=== PATIENT | female | born 2000 | race Caucasian/White ===

== ENCOUNTER 2024-01-14 18:52 | Outpatient (CLI) | payer BC, SELFPAY ==
[2024-01-15 00:11] LABS: Chlamydia DNA Amplified* NOT DETECTED (No Detected); GC DNA Amplified* NOT DETECTED (No Detected)
== END 2024-01-14 18:53 | disposition home or self-care (01) ==
PROVIDERS: PCP Family Medicine; Visit Provider Family Medicine
DX: Z00.00 Encounter for general adult medical examination without abnormal findings (principal); N97.9 Female infertility, unspecified; Z11.3 Encounter for screening for infections with a predominantly sexual mode of transmission; Z34.91 Encounter for supervision of normal pregnancy, unspecified, first trimester
CPT/HCPCS: 84443; 84702; 86376; 86592; 86703; 86800; 86850; 86900; 86901; 87491; 87591

== ENCOUNTER 2024-03-18 13:45 | Outpatient (CLI) | payer BC, SELFPAY ==
--- NOTE | 2024-03-18 14:00 | CRLHL7_ITS ---
For Patients: As a result of the Century Cures Act, medical imaging exams and procedure reports are released immediately into your electronic medical record. You may view this report before your referring provider. If you have questions, please contact your health care provider. INDICATION: First trimester dating and viability. TECHNIQUE: Ultrasound OB pelvis transabdominal and transvaginal. Real-time hopkins-scale imaging of the pelvis was performed. COMPARISON: None. FINDINGS: Intrauterine gestation: Single. heart activity (bpm): 161. [place]-rump length: 1.6 cm. Estimated ultrasound age: 8 weeks 0 days. RAMILA by ultrasound: 10/28/2024. Yolk sac: Normal, measuring 4.4 millimeters. Perigestational hemorrhage: None. Ovaries and adnexa: Normal with corpus luteum on the right. Suspicious pelvic fluid collections: None. IMPRESSION: Garcia intrauterine . Cardiac activity is present. Estimated gestational age based on crown-rump length is 8 weeks 0 days. Dictated by Molly Marino MD @ 03/19/2024 2:55:30 PM (Electronically Signed)
== END 2024-03-18 13:46 | disposition home or self-care (01) ==
LOC: US 13:46
PROVIDERS: PCP Family Medicine; Visit Provider Physician Assistant
DX: Z34.91 Encounter for supervision of normal pregnancy, unspecified, first trimester (principal); Z3A.08 8 weeks gestation of pregnancy
CPT/HCPCS: 76817; 84443; 86703; 86706; 86803; 86850; 86900; 86901; 87086; 87340; 87491; 87591

== ENCOUNTER 2024-03-18 14:52 | Outpatient (CLI) | payer BC, SELFPAY ==
[2024-03-18 20:55] LABS: Chlamydia DNA Amplified* NOT DETECTED (No Detected); GC DNA Amplified* NOT DETECTED (No Detected)
[2024-03-21 08:24] LABS: HPV Source Cervical; HPV, High Risk by TMA Not Detected
== END 2024-03-18 14:53 | disposition home or self-care (01) ==
PROVIDERS: PCP Family Medicine; Visit Provider Physician Assistant
DX: Z34.01 Encounter for supervision of normal first pregnancy, first trimester (principal)
CPT/HCPCS: 84443; 86592; 86703; 86704; 86706; 86762; 86787; 86803; 86850; 86900; 86901; 87086; 87340; 87491; 87591; 87624; 87625; 88141; 88142

== ENCOUNTER 2024-06-10 14:42 | Outpatient (CLI) | payer BC, SELFPAY ==
--- NOTE | 2024-06-10 15:00 | CRLHL7_ITS ---
For Patients: As a result of the Century Cures Act, medical imaging exams and procedure reports are released immediately into your electronic medical record. You may view this report before your referring provider. If you have questions, please contact your health care provider. INDICATION: Evaluate anatomy. COMPARISON: 03/18/2024 TECHNIQUE: Real time hopkins scale imaging of the fetus was performed as well as color Doppler analysis of the umbilical vessels. FINDINGS: Sonographic imaging demonstrates a single living intrauterine gestation. Fetus demonstrates a regular cardiac rate of 134 beats per minute. Fetus has a variable position. The placenta lies anteriorly without evidence of placenta previa. Edge of the placenta is located 8.8 cm from the internal cervical os. Amniotic fluid volume appears normal. Single deepest vertical pocket: 4.4 cm. The cervix is closed and measures 3.3 cm in length. The composite ultrasound gestational age is calculated at 19 weeks 6 days with an estimated sonographic due date of 10/29/2024. The estimated weight is 324 grams which lies at the 43rd %. The following biometric measurements were obtained: Biparietal diameter: 4.3 cm/19 weeks 1 day 17th% Head circumference: 16.7 cm/19 weeks 3 days 16th% Abdominal circumference: 14.7 cm/20 weeks 0 days 42nd% Femur length: 3.3 cm/20 weeks 1 day 50th% The HC/AC ratio measures: 1.14 range (1.08-1.26) On anatomic survey, there is a normal appearance of the cerebral ventricles, cavum septi pellucidi, cisterna magna and cerebellum. The nose, lips, and facial profile appear normal. The cervical, thoracic and lumbar spine are well visualized and appear normal. There is a normal four-chamber heart view and the left and right ventricular outflow tracts appear normal. The diaphragm and stomach appear normal. The kidneys and bladder also appear normal. There is a normal three-vessel cord and cord insertion site. The four extremities appear normal. IMPRESSION: Normal OB ultrasound exam with concordance of clinical and sonographic dating. No intrinsic abnormalities noted on anatomic survey. Dictated by Phuc Norman MD @ 06/11/2024 12:16:24 PM (Electronically Signed)
== END 2024-06-10 14:43 | disposition home or self-care (01) ==
LOC: US 14:43
PROVIDERS: PCP Family Medicine; Visit Provider Advanced Practice Midwife
DX: Z34.92 Encounter for supervision of normal pregnancy, unspecified, second trimester (principal); Z3A.19 19 weeks gestation of pregnancy
CPT/HCPCS: 76805

== ENCOUNTER 2024-06-30 10:37 | Outpatient (CLI) | payer BC, SELFPAY ==
[2024-06-30 10:56] VITALS: PULSE 100; O2SAT 97
[2024-06-30 10:57] VITALS: BP 115/63; PULSE 80; RESP 16; TEMP 36.6
--- NOTE | 2024-06-30 11:40 | CRLHL7_ITS ---
For Patients: As a result of the Century Cures Act, medical imaging exams and procedure reports are released immediately into your electronic medical record. You may view this report before your referring provider. If you have questions, please contact your health care provider. INDICATION: Bleeding and cramping COMPARISON: 06/10/2024 TECHNIQUE: Campbell-scale and color Doppler of the gravid uterus and fetus from a transabdominal approach. Grayscale transvaginal ultrasound of the maternal cervix. FINDINGS: Established gestational age: 22 weeks 6 days Single intrauterine gestation in a cephalic presentation. heart rate is 133 bpm. The stomach, kidneys, and bladder appear normal. No pleural effusion, pericardial effusion, ascites, or skin edema. Amniotic fluid volume is normal. The placenta is anterior, left, and fundal. No previa. No periplacental hemorrhage. MATERNAL Neither ovary discretely seen. No pelvic free fluid. Cervical length is 4 cm. No funneling at the os. Measured transvaginal IMPRESSION: 1. Single intrauterine gestation without complication seen. 2. Normal maternal cervix. Dictated by Barbi Gaston MD @ 06/30/2024 12:41:20 PM (Electronically Signed)
[2024-06-30] MEDS: lidocaine HCL 2 % JELLY (TOP) STERILE 6 ML TOPICAL (11:52)
[2024-06-30 12:13] LABS: Clue Cells No Clue Cells Seen (None Seen); Trichomonas No Trichomonas Seen (None Seen); Yeast No Yeast Seen (None Seen)
[2024-06-30 13:11] LABS: Appearance Urine Clear (Clear); Bilirubin Urine Negative (Negative); Blood Urine 3+ (Negative); Color Urine Yellow (Yellow); Glucose Urine Negative (Negative); Ketones Urine 2+ (Negative); Leukocyte Esterase Urine Negative (Negative); Nitrite Urine Negative (Negative); Protein Urine Negative (Negative); Specific Gravity Urine 1.015 (1.000-1.030); Urobilinogen Urine 0.2 (0.2-1.0)
[2024-06-30 13:23] LABS: Squamous Epithelial Cell Urine Few (None-Few); WBC Urine 0-2 (0-5)
[2024-06-30 13:37] LABS: Chlamydia DNA Amplified* NOT DETECTED (No Detected); GC DNA Amplified* NOT DETECTED (No Detected)
--- NOTE | 2024-06-30 17:27 | P.OBLDTN_ITS ---
OB - Triage/Final Diagnosis Visit Information Time Seen by Provider: 11:40 Date Seen: 06/30/24 Date of evaluation: 06/30/24 Narrative: The patient is a 24 year old 1 para 0 at 22.6 weeks gestation by first trimester US, who presents with new onset of bleeding this morning when up on the toilet. She reports last evening she had strong cramping but no bleeding until this morning when she got up to the toilet then noticed red blood in the bowl. Denies pain or cramping at this time, does not have vaginal discharge or irritation. She is feeling movement. She was recently seen in another facility's ED and diagnosed with an UTI. Currently on day 7 of antibiotic treatment. All labs are normal except UA shows 2+ Ketones and 3+ blood. US normal appearing placenta and no cervical thinning. Patient discharged home. Evaluation Laboratory results: Laboratory Tests 06/30/24 06/30/24 Range/Units Unknown 12:48 Urine Color Yellow (Yellow) Urine Appearance Clear (Clear) Urine pH 7.0 (5.0-8.5) Ur Specific [place] 1.015 (1.000-1.030) Urine Protein Negative (Negative) Urine Glucose (UA) Negative (Negative) Urine Ketones 2+ A (Negative) Urine Blood 3+ A (Negative) Urine Nitrite Negative (Negative) Urine Bilirubin Negative (Negative) Urine Urobilinogen 0.2 (0.2-1.0) Ur Leukocyte Esterase Negative (Negative) Urine RBC 10-25 A (0-2) Urine WBC 0-2 (0-5) Ur Squamous Epith Cells Few (None-Few) Urine Bacteria None (None) Vaginal Trichomonas No Trichomonas Seen (None Seen) Vaginal Yeast No Yeast Seen (None Seen) Vaginal Clue Cells No Clue Cells Seen (None Seen) C.trachomatis Ampl DNA NOT DETECTED (No Detected) N.gonorrhoeae Ampl DNA NOT DETECTED (No Detected) Vital signs: Vital Signs - 24 hr 06/30/24 10:56 06/30/24 10:57 06/30/24 10:57 Temperature 98 F Pulse Rate 80 Respiratory Rate 16 Blood Pressure 115/63 Pulse Oximetry 97 Comments: Speculum exam done. No vaginal discharge, cervix appears closed. No blood seen in vault. Abdomen is not tender to palpation, soft. Fetus (Single) Heart Rate Baseline: 150 Final Diagnosis (1) Kidney stone complicating : Status: Acute
== END 2024-06-30 13:50 | disposition home or self-care (01) ==
LOC: OB OUT 10:38 → OB 10:39
PROVIDERS: PCP Family Medicine; Visit Provider Advanced Practice Midwife
DX: O46.92 Antepartum hemorrhage, unspecified, second trimester (principal); O47.02 False labor before 37 completed weeks of gestation, second trimester; Z3A.22 22 weeks gestation of pregnancy
CPT/HCPCS: 76815; 76817; 81001; 87210; 87491; 87591; G0463

== ENCOUNTER 2024-08-08 14:32 | Outpatient (CLI) | payer BC, SELFPAY | END 2024-08-08 14:33 | disposition home or self-care (01) | LOC: NFLDREF 14:32 | PROVIDERS: PCP Family Medicine; Visit Provider Advanced Practice Midwife | DX: Z34.93 Encounter for supervision of normal pregnancy, unspecified, third trimester (principal); Z3A.28 28 weeks gestation of pregnancy | CPT/HCPCS: 86592 ==

== ENCOUNTER 2024-08-11 08:29 | Outpatient (CLI) | payer BC, SELFPAY | END 2024-08-11 08:30 | disposition home or self-care (01) | LOC: NFLDREF 08-13 06:47 | PROVIDERS: PCP Family Medicine; Referring Provider Family Medicine; Visit Provider Advanced Practice Midwife | DX: O99.810 Abnormal glucose complicating pregnancy (principal); Z3A.28 28 weeks gestation of pregnancy | CPT/HCPCS: 82951; 82952 ==

== ENCOUNTER 2024-10-03 14:47 | Outpatient (CLI) | payer OTHER, SELFPAY | END 2024-10-03 14:48 | disposition home or self-care (01) | LOC: NFLDREF 10-07 03:03 | PROVIDERS: PCP Family Medicine; Referring Provider Family Medicine; Visit Provider Advanced Practice Midwife | DX: Z34.03 Encounter for supervision of normal first pregnancy, third trimester (principal) | CPT/HCPCS: 87081; 87653 ==

== ENCOUNTER 2024-10-22 19:42 | Outpatient (CLI) | payer OTHER, SELFPAY ==
--- NOTE | 2024-10-22 23:38 | PC.OBNST ---
NST Note NST Note Start: 10/22/24 19:45 Freq: ONCE Status: Active Protocol: Document 10/22/24 19:45 [facility] (Rec: 10/22/24 23:38 [facility] [id number]) NST Note 1 Para (# of births) 0 EDC 10/28/24 Gestational Age In Weeks & Days 39 Weeks & 1 Days Patient Presented with Complaint(s) of Decreased movement Reactive Yes Appropriate for Gestational Age Yes CLAUDIA Lancaster RN Date 10/22/24 Reactive Yes Appropriate for Gestational Age Yes CLAUDIA Cruz RN Date 10/22/24 OB NST charge Yes Complete NST Note via Write Note Yes The provider's electronic signature indicates the NST is reactive/appropriate for gestational age. *Note to provider: If an addendum is required, open the patient's chart and click on the note under the Nurse/Allied Health tab.
== END 2024-10-22 20:35 | disposition home or self-care (01) ==
LOC: OB OUT 19:43 → OB 19:43
PROVIDERS: PCP Family Medicine; Visit Provider Advanced Practice Midwife
DX: Z34.93 Encounter for supervision of normal pregnancy, unspecified, third trimester (principal); Z3A.39 39 weeks gestation of pregnancy
CPT/HCPCS: 59025; G0463

== ENCOUNTER 2024-11-04 15:45 | Outpatient (CLI) | payer OTHER, SELFPAY ==
--- NOTE | 2024-11-04 16:00 | CRLHL7_ITS ---
For Patients: As a result of the Cures Act, medical imaging exams and procedure reports are released immediately into your electronic medical record. You may view this report before your referring provider. If you have questions, please contact your health care provider. OB ULTRASOUND RAMILA by LMP: 10/28/2024. GA: 41 w, 0 d. Single. Comparison: 06/30/2024, 06/10/2024. INDICATION: Post dates. TECHNIQUE: Real time grayscale imaging of the fetus was performed. Transabdominal. CERVIX: Not visualized. POSITIONING: Vertex. AMNIOTIC FLUID: ROBERT: 24.8 cm. 8.4 cm. SDP (N: greater than 2 x 1 cm) BIOPHYSICAL PROFILE: 2: Gross body movements 2: tone 2: Respiratory activity 2: Amniotic fluid SDP (N: greater than 2 x 1 cm) 8/8: Total score PLACENTA: Technique: Transabdominal. PLACENTA POSITION: Anterior. DOPPLER: heart rate: 147 bpm. IMPRESSION: 1. Normal biophysical profile score 8/8. 2. Amniotic fluid single deepest pocket 8.4 cm. ROBERT 26.8 cm. Phuc Norman M.D. Diagnostic Radiologist [email or web address] MARIANA/rajendra drew/Dictated by: Phuc Norman MD @ 11/05/2024 6:58:00 AM (Electronically Signed)
== END 2024-11-04 15:46 | disposition home or self-care (01) ==
LOC: US 15:45
PROVIDERS: PCP Family Medicine; Visit Provider Advanced Practice Midwife
DX: O48.0 Post-term pregnancy (principal); Z3A.41 41 weeks gestation of pregnancy
CPT/HCPCS: 76819

== ENCOUNTER 2024-11-04 19:32 | Inpatient (IN) | payer OTHER, SELFPAY ==
[2024-11-04 19:45] VITALS: BMI 25.5
[2024-11-04 19:50] VITALS: BP 117/75; PULSE 89; PULSE 94; TEMP 36.9; O2SAT 97
--- NOTE | 2024-11-04 20:39 | W.PM.LDBA ---
Subjective History of Present Illness Date Seen: 11/04/24 Narrative: Patient is being admitted to Labor and Delivery for IOL. She is a 24 year old at 41.0 weeks gestation. Her full history and physical was dictated by Anh Sepulveda CNM on 10/08/24. Please see this for details. She requested a SVE and was found to be unchanged from previous exam. She is hector regularly but feeling them as cramping and back pain that is mild. We discussed that cervical ripening is unnecessary with her alex score. Discussed Pitocin titration vs AROM and risks/benefits of each. Baby is slightly ballotable despite being a low station so AROM would not be an ideal choice at this time. She would like to proceed with Pitocin titration. Specific Issues/Plans G1 Partner: Chun H&P: Completed by MARCO Oliveira on 10/08/2024 # History of depression, doing well without treatment # Failed 1 hour gct, 3 hour gct-passed all 4 values 08/11/24 Imaginwk US 06/10/24-normal findings COVID: declined Flu: declined Tdap: 08/29/2024 RSV: [] 32 week mental health: [] Last pap: 03/18/24 OB - Problem Based A/P Additional Plan (1) Supervision of normal first in third trimester: Status: Acute (2) Post-dates : Status: Acute (3) Anxiety with depression: Status: Acute (4) PTSD (post-traumatic stress disorder): Status: Chronic Plan ASSESSMENT:? at 41.0 weeks gestation? GBS negative? Uncomplicated ? Postterm IOL? Blood type: A+? ?? PLAN:? 1. Reviewed risks and benefits of IOL with Pitocin vs AROM. Pt prefers Pitocin titration.? 3. Desires water . Consent signed. Hep C negative.? 4. Candidate for analgesia of choice. Planning unmedicated .? 5. Anticipate ? 7. Expectant management at this time.? 8. IV placement for Pitocin titration and continuous monitoring per policy. Delivery/Labor/Induction Plan Plan: induction Induction method: per pitocin protocol OB Result Labs Blood Type: A (+) positive Rubella: immune RPR/VDLR: nonreactive GBS Status: negative HBsAG: negative OB Exam Physical Exam Vital signs: Temp Pulse BP Pulse Ox 98.4 F 89 117/75 97 11/04/24 19:50 11/04/24 19:50 11/04/24 19:50 11/04/24 19:50 Narrative: Psychiatric:? Alert and oriented x3? HEENT:? Normocephalic, atraumatic? Neck:? Supple without adenopathy or thyromegaly? Lungs:? Clear to auscultation bilaterally? Heart:? Regular rate and rhythm, no murmur, rub or gallop? Abdomen:? Soft, nontender, and gravid? Extremities:? No edema or erythema? Detailed Labor and Delivery Exam Patient Gravid: Yes Dilation (cm): 5 Effacement (%): 90 Cervix position: mid Consistency: medium Contraction Frequency: 4-5 min Tachysystole: No Contraction intensity: Mild Fetus (Single) Station: 0 Amniotic Membrane Status: intact Heart Rate Baseline: 130 Monitor Accelerations: Present Monitor Decelerations: None Shelter Variability: Moderate (6-25)
[2024-11-04] MEDS: LACTATED RINGERS 1000 ML 1,000 ML 125 ML IV (21:09)
[2024-11-04] MEDS: OXYTOCIN 30 unit/500 ML in NS 30 UNIT/500 ML BAG IVPB (21:09)
[2024-11-04 22:00] VITALS: BP 115/71; PULSE 90; TEMP 36.7
[2024-11-04 22:52] VITALS: PULSE 86; O2SAT 97
[2024-11-04 22:59] VITALS: BP 110/59; PULSE 80
[2024-11-05] VITALS (23 sets, daily range): BP systolic 102–132; BP diastolic 57–87; PULSE 65–90; RESP 16; TEMP 36.5–37.3; O2SAT 96–98
[2024-11-05] MEDS: MAG HYDROX/ALUMINUM HYD/SIMETH 30 ML ORAL.SUSP PO (01:38)
[2024-11-05] MEDS: ONDANSETRON 2 MG/ML inj 4 MG IV (03:47)
[2024-11-05] MEDS: FAMOTIDINE 20 MG TABLET PO (04:27)
[2024-11-05] MEDS: hydrOXYzine pamoate 25 MG CAPSULE 100 MG PO (04:37)
[2024-11-05] MEDS: LACTATED RINGERS 1000 ML 1,000 ML 125 ML IV ×2 (04:42→08:49)
--- NOTE | 2024-11-05 07:18 | PM.OBPNL ---
Subjective Date Seen: 11/05/24 Narrative: ?Lucinda is coping well with labor pain/contractions. ?Chun is with her for support. ?She is feeling contractions some this morning but appears relaxed and not breathing through contractions at this time. She reports she slept only a little then her contractions got more uncomfortable and she was not able to get back to sleep. We reviewed current labor status and plan of care, recommended we do AROM this morning and continue with IV Pitocin per protocol. Reviewed risks, benefits and alternatives with Lucinda, she was agreeable to AROM.? Objective Exam: VSS, afebrile General Appearance:? Calm, cooperative. ?No acute distress. ? Psychiatric Exam: Alert and oriented, appropriate affect Abdomen: Gravid Ctx: ?Q 3-7 min apart. ?Mild ? ? FHTs: ?Baseline: 130. ? ? Variability: moderate. ?Accels: + ? ?Decels: -?. SVE: 5/90/0 Membranes: ?AROM meconium stained at 0715 Vital Signs: Last Vital Signs Temp 97.8 F 11/05/24 05:59 Pulse 65 11/05/24 05:59 BP 121/67 11/05/24 05:59 Pulse Ox 97 11/04/24 22:52 Contractions Contraction intensity: Mild Pitocin Rate (mU/min): 12 Assessment Assessment: induction ongoing Station: 0 Amniotic Membrane Status: AROM Status: Category l Heart Rate Baseline: 130 Monitor Accelerations: Present Monitor Decelerations: None Plan Plan: Assessment:?? at 41.1 weeks gestation?? GBS neg Patient is coping well with challenges of labor.?? Labor type: Induced, Early labor? Category 1 FHR pattern.? complicated by: # History of depression, doing well without treatment # Failed 1 hour gct, 3 hour gct-passed all 4 values 08/11/24 Labor complicated by: none? Plan:?? Continue with IV Pitocin per protocol AROM with meconium stained fluid, pediatrics to attend delivery, charge nurse to notify them Continue with routine intrapartum cares as ordered.?? Patient encouraged to move and change positions to promote physiologic labor and .?? Nonpharmacologic comfort measures per patient preference. Candidate for analgesia of choice if desired. Patient planning waterbirth Anticipate progress to NVD. ?
--- NOTE | 2024-11-05 08:21 | PM.OBPNL ---
Subjective Date Seen: 11/05/24 Narrative: ?Lucinda is coping well with labor pain/contractions she is currently in the regular tub and requesting an epidural. Offered to check dilation and if close to delivery have her get in the waterbirth tub but she declines at this time. Will work towards epidural placement and assess again as needed. ?Chun is with her for support. ? Objective Exam: VSS, afebrile General Appearance:? Calm, cooperative. ?No acute distress. ? Psychiatric Exam: Alert and oriented, appropriate affect Abdomen: Gravid Ctx: ?Q 2-3 min apart. ? ? ?Strong FHTs: ?Baseline: 130. ? ? Variability: moderate. ?Accels: -. ? ?Decels: ?-. SVE: deferred Membranes: ?AROM at 0715, meconium stained Vital Signs: Last Vital Signs Temp 98.1 F 11/05/24 07:23 Pulse 78 11/05/24 07:22 BP 124/82 11/05/24 07:22 Pulse Ox 97 11/04/24 22:52 Contractions Contraction intensity: Mild Pitocin Rate (mU/min): 13 Assessment Assessment: induction ongoing Station: 0 Amniotic Membrane Status: AROM Status: Category l Heart Rate Baseline: 130 Monitor Accelerations: Present Monitor Decelerations: None Plan Plan: Assessment:?? at 41.1 weeks gestation?? GBS neg Patient is coping well with challenges of labor.?? Labor type: Induced, Early labor? Category 1 FHR pattern.? complicated by: # History of depression, doing well without treatment # Failed 1 hour gct, 3 hour gct-passed all 4 values 08/11/24 Labor complicated by: postdates? Plan:?? requesting epidural for pain, to be placed by anesthesia IV Pitocin per protocol Continue with routine intrapartum cares as ordered.?? Patient encouraged to move and change positions to promote physiologic labor and .?? Nonpharmacologic comfort measures per patient preference. Candidate for analgesia of choice if desired. Anticipate progress to NVD. ?
[2024-11-05] MEDS: lidocaine HCL 2 % JELLY (TOP) STERILE 6 ML TOPICAL (10:20)
[2024-11-05] MEDS: miSOPROStoL 800 MCG/4 TABLET PR (10:30)
[2024-11-05] MEDS: LIDOCAINE 1 % PF 30 ML INJECTION (10:41)
[2024-11-05] MEDS: TRANEXAMIC ACID 100 MG/ML INJ 1000 MG IV (10:50)
[2024-11-05] MEDS: fentaNYL 100 MCG/2 ML inj IVP (10:50)
--- NOTE | 2024-11-05 11:08 | W.PM.OBVAGDE ---
OB Procedure Vag Delivery Mother Details Mother Details: Lucinda is a 24 year-old, 1, Para 0, admitted on 11/04/24 at 41.0 weeks gestation for a postdates induction of labor. : 1 Para: 1 Weeks Gestation: 41.1 Admission Date: 11/04/24 Additional Details Amniotic Membrane Status: AROM Amniotic Membrane Rupture Date: 11/05/24 Amniotic Membrane Rupture Time: 07:15 Amniotic Membrane Fluid Description: Yellow Analgesia/Anesthesia Type: Nitrous Oxide Waterbirth: Yes Pitcoin: Yes Intrapartal Events: Labor Induction Induction Method: per pitocin protocol and AROM Labor Onset: 07:30 Complete: 08:44 Pushin:44 Heart: heart tones during second stage were difficult to trace due to frequent position changes and did not always trace on monitor. Audible FHR 140's heard, variable deceleration with last two contractions while . Delivery Details Delivery Date: 11/05/24 Delivery Time: 10:01 Route of delivery: Infant Gender: Female Viability: Alive; Heart Rate Present Delivery Details: 24?y.o?at 41.1 weeks.? Lucinda was admitted for induction of labor for postdates. She was started on IV Pitocin overnight but was unchanged this morning with exam. She was agreeable to AROM which was done for a large amount of yellow meconium stained fluid. She began to get uncomfortable with contractions shortly after and requested an epidural. While preparing for this she began to feel like pushing and decided to get into the tub while waiting, anesthesia arrived and she was given the option of trying to have an epidural placed or continuing on with waterbirth. She chose to stay in the tub and use nitrous for pain. ? She became complete at 0844, assumed with pushing.??She pushed in multiple positions effectively.??? The ?turtle sign? was noted following the delivery of the head. Initial gentle traction failed to deliver the shoulders. Maneuvers used for shoulder delivery included Cristiane, and manual rotation of the anterior shoulder which were successful. Recorded time interval between delivery of the head and shoulder was 50 seconds. Spontaneous vaginal delivery at 1001 of?a viable? female infant.??Delivered in vertex OA position.??? placed on maternal abdomen.??Cord?was clamped and cut after a 5+ minute delay.??Nose and mouth were bulb suctioned.??Pediatric provider present for delivery. ? ? Infant could move both upper extremities after the delivery? The patient tolerated the procedure well. The management of shoulder dystocia was reviewed with the patient and partner. All their questions were answered. ? Shoulder dystocia: yes? Nuchal cord: no? Meconium stained?fluid: yes? Water : yes? ? ? 8 at 1 minute and 9 at 5 minutes.? Weight is 8lbs 8oz, 3860g. ? Placenta delivered spontaneously and?complete?at 1018 with a?3 vessel?cord.?? Bleeding controlled with fundal massage Pitocin, rectal Cytotec and TXA for continual trickling. Decision made to do manual sweep for clots after emptying her bladder of 150ml of urine by st. cath. She was given IV fentanyl 100mcg for pain control and manual sweep for large clots was done. Bleeding then slowed and was minimal.? ? Lacerations:? 2 degree, repaired with 3-0?vicryl.??multiple labial abrasions bilaterally not bleeding, not repaired. The open areas of tissue did not appear to sit closely together. ? Bleeding?post delivery?was: moderate. ?The fundus was firm to palpation.? Blood loss: 650?mL.? Blood loss measurement type: QBL? ? ? Sponge,?lap?and needles counts are correct.? Mother and infant were stable after delivery.? 1 Minute Interval Total Score: 8 5 Minute Interval Total Score: 9 Additional Details Shoulder Dystocia: Yes Placenta Delivery Time: 10:18 Placental Delivery Description: Spontaneous Delivery repair: Vicryl Procedure Done: Global Blood Loss: 650 Laceration: Vaginal - 2nd Degree Blood Loss Measurement Type: QBL Bakri Used: No Sponge/Need Count Correct: Yes Cord Vessel Description: 3 Vessels Event Summary Status: Mother and were stable after delivery. Disposition: floor
[2024-11-05] MEDS: CEFAZOLIN 1 GM in 0.9 % SODIUM CHLORIDE Mini-bag 100 ML IVPB (12:35)
[2024-11-05] MEDS: IBUPROFEN 600 MG TABLET PO ×2 (13:31→20:11)
[2024-11-05] MEDS: ACETAMINOPHEN 500 MG TABLET 1000 MG PO (17:15)
[2024-11-06 02:47] VITALS: BP 123/75; PULSE 86; RESP 16; TEMP 36.9; O2SAT 97
[2024-11-06 04:55] VITALS: BP 114/84; PULSE 78; RESP 16; O2SAT 97
[2024-11-06 06:50] LABS: Hemoglobin* 9.4 gm/dL (12.0-16.0)
--- NOTE | 2024-11-06 07:51 | PM.OBDSVD1 ---
DS: Providers Provider Date Seen: 11/06/24 Date of admission: 11/04/24 19:32 Primary care physician: Demetrius Quiroz MD Admitting Clinician: Lisa Moctezuma CNM Attending Physician on discharge: Barbi Sepulveda CNM DS: Diagnosis Discharge Diagnosis (1) care and examination immediately after delivery: Status: Acute (2) Lactating mother: Status: Acute Exam Narrative: Exam Narrative: GENERAL APPEARANCE:? normal affect, alert, no distress MOOD:? appropriate CHEST:? clear to auscultation HEART:? regular rate and rhythm ABDOMEN:? soft, non-tender the uterine fundus is at Umbilicus, Midline and is appropriate for the stage of recovery. PERINEUM:? mild edema of the perineum, there is a vaginal Laceration. EXTREMITIES:? normal and no edema Const: Vital Signs, click to edit/add: Vital Signs - 24 hr 11/05/24 10:28 11/05/24 10:42 11/05/24 10:58 Temperature Pulse Rate 75 73 84 Pulse Rate [Pulse Oximeter] Respiratory Rate Blood Pressure 115/69 112/64 124/75 Blood Pressure [Le ft Arm] Pulse Oximetry Oxygen Delivery Me thod 11/05/24 11:12 11/05/24 11:27 11/05/24 11:50 Temperature Pulse Rate 90 76 78 Pulse Rate [Pulse Oximeter] Respiratory Rate Blood Pressure 132/87 120/75 127/69 Blood Pressure [Le ft Arm] Pulse Oximetry Oxygen Delivery Va thod 11/05/24 11:58 11/05/24 12:12 11/05/24 12:27 Temperature Pulse Rate 84 85 76 Pulse Rate [Pulse Oximeter] Respiratory Rate Blood Pressure 121/58 L 117/60 115/63 Blood Pressure [Le ft Arm] Pulse Oximetry Oxygen Delivery Me thod 11/05/24 12:42 11/05/24 12:57 11/05/24 13:12 Temperature Pulse Rate 73 74 75 Pulse Rate [Pulse Oximeter] Respiratory Rate Blood Pressure 118/65 117/65 118/67 Blood Pressure [Le ft Arm] Pulse Oximetry Oxygen Delivery Va thod 11/05/24 19:09 11/05/24 23:23 11/06/24 02:47 Temperature 99.1 F 98.2 F 98.4 F Pulse Rate Pulse Rate [Pulse Oximeter] 74 78 86 Respiratory Rate 16 16 16 Blood Pressure Blood Pressure [Le ft Arm] 119/79 115/72 123/75 Pulse Oximetry 98 96 97 Oxygen Delivery Me thod Room Air Room Air Room Air 11/06/24 04:55 Temperature Pulse Rate Pulse Rate [Pulse Oximeter] 78 Respiratory Rate 16 Blood Pressure Blood Pressure [Le ft Arm] 114/84 Pulse Oximetry 97 Oxygen Delivery Me thod Room Air Documenting provider has reviewed patient's vital signs: yes OB - DS: Summary Hospital Course Hospital Course: Lucinda is a 24 y.o. G 1 P 1 who was admitted to [facility] for induction of labor. ?She had a NVD that was uncomplicated. The patient feels well. ?The pain is well controlled with current medications. ?She has no new complaints. ?She is breast feeding and reports things are going well. the patient has done well.? Vitals have been stable.? She has remained afebrile.? Has a good appetite, is tolerating a general diet. ?She is voiding without difficulty.? She is passing gas and has not had a bowel movement.? She is ambulating and denies any dizziness.? Has small amount of rubra lochia. She is planning condoms for prevention. Problems: none Discharge home with baby.? Follow up in 2 weeks and 6 weeks.? , may see if needed? Hgb 9.4. ?Iron supplement ordered orally every other day For pain control of perineum, breast and pelvic pain, take 600 mg Ibuprofen every 6 hours as needed by mouth or 1000 mg acetaminophen (Tylenol) every 6 hours by mouth as needed. You can alternate these so you are taking something every 3 hours as needed. A heating pad can also be used for your abdomen or breasts. You may also take docusate sodium up to twice daily to soften your stools and help to prevent constipation. You may wean off of it when your stools return to normal.? Peripartum Data Infant delivery method: Vaginal Laceration description: Vaginal - 2nd Degree complications: none Infant Gender: Female Infant Discharge Plan: Home Status at Discharge Functional status at discharge: independent ambulation Overall status at discharge: patient is progressing back to baseline Time Spent with Patient Time attestation: Total time spent providing and/or coordinating discharge services: Time spent: Less than 30 minutes Discharge Plan Discharge Disposition: Home, Self-Care Date of Admission: 11/04/24 19:32 Attending Provider on Discharge: Barbi Sepulveda Primary Care Provider: Demetrius Quiroz Condition: Stable Anticipated Discharge Date/Time: 11/06/24 12:00 Discharge Medications: New ferrous sulfate 325 mg (65 mg iron) Tablet 325 mg PO Q OTHER DAY Qty: 60 0RF docusate sodium 100 mg Capsule 100 mg PO DAILY Qty: 60 0RF ibuprofen 600 mg Tablet 600 mg PO Q6H PRNQty: 60 0RF acetaminophen 500 mg Tablet 1,000 mg PO Q6H PRNQty: 0 0RF Continued Vitamin Plus Low Iron 27 mg iron- 1 mg tablet 1 tab PO QDAY Qty: 90 3RF famotidine [Pepcid] 20 mg tablet 20 mg PO QDAY Discharge Orders: Discharge Order (Routine); Ordered 11/06/24 Ordered By: Barbi Sepulveda Patient Education: OB Over the Counter Medication Information, OB Vaginal/Breast Feeding Additional Instructions: Discharge instructions were reviewed with the patient including signs and symptoms of infection and home going medications Nothing vaginally for 6 weeks: no tampons or intercourse Off Work or School for 6 weeks 2-week visit: discuss infant feeding concerns, review control options and screen for anxiety/depression. 6-week visit for an annual exam. consultation services are available to all mothers and babies for the first year after delivery.? To make an appointment, please call [phone]. Activity Level: Activity as Tolerated Discharge Diet: Regular Follow Up Appointments: [facility] [[facility] Group[facility] Inst[facility]
[2024-11-06 08:54] VITALS: BP 114/75; PULSE 81; RESP 16; TEMP 36.7; O2SAT 97
[2024-11-06 18:15] VITALS: BP 112/76; PULSE 75; RESP 16; TEMP 36.7; O2SAT 97
[2024-11-07 04:00] VITALS: BP 103/66; PULSE 64; RESP 16; TEMP 36.8; O2SAT 98
--- NOTE | 2024-11-07 07:47 | PM.OBDSVD1 ---
DS: Providers Provider Date Seen: 11/07/24 Date of admission: 11/04/24 19:32 Primary care physician: Demetrius Quiroz MD Admitting Clinician: Tere LARA Attending Physician on discharge: Lisa Moctezuma CNM Date of Discharge: 11/07/24 DS: Diagnosis Discharge Diagnosis (1) care and examination of lactating mother: Status: Acute (2) Anxiety with depression: Status: Acute Exam Narrative: Exam Narrative: GENERAL APPEARANCE:? normal affect, alert, no distress MOOD:? appropriate CHEST:? clear to auscultation HEART:? regular rate and rhythm ABDOMEN:? soft, non-tender the uterine fundus is 3 cm below Umbilicus, Midline and is appropriate for the stage of recovery. PERINEUM:? mild edema of the perineum, there is a Perineal Laceration,? no erythema with appropriate stages of healing EXTREMITIES:? normal and minimal edema Const: Vital Signs, click to edit/add: Vital Signs - 24 hr 11/06/24 08:54 11/06/24 18:15 11/07/24 04:00 Temperature 98.1 F 98.0 F 98.3 F Pulse Rate [Pulse Oximeter] 81 75 64 Respiratory Rate 16 16 16 Blood Pressure [Le ft Arm] 114/75 112/76 103/66 Pulse Oximetry 97 97 98 Oxygen Delivery Me thod Room Air Room Air Room Air OB - DS: Summary Hospital Course Hospital Course: Lucinda is a 24 y.o. G 1 P 1001 who was admitted to [facility] for IOL for post term.? She had a NVD that was uncomplicated. The patient feels well.? The pain is well controlled with current medications.? She has no new complaints.? She is breast feeding and reports things are going well. the patient has done well.? Vitals have been stable.? She has remained afebrile.? Has a good appetite, is tolerating a general diet.? She is voiding without difficulty.? She is passing gas and has not had a bowel movement.? She is ambulating and denies any dizziness.? Has small amount of rubra lochia. She is planning condoms for prevention.? ?? Problems: none? ?? plan:? Discharge home with baby.? Follow up in 2 weeks and 6 weeks.? , may see if needed? Hgb pending. Iron supplement ordered orally every other day? Call for signs/symptoms of preeclampsia? Peripartum Data Infant delivery method: Vaginal Laceration description: Perineal - 2nd Degree Episiotomy description: None complications: none [place] Infant Gender: Female Discharge Plan: Home Status at Discharge Overall status at discharge: patient is progressing back to baseline Time Spent with Patient Time attestation: Total time spent providing and/or coordinating discharge services: Time spent: Less than 30 minutes Discharge Plan Discharge Disposition: Home, Self-Care Date of Admission: 11/04/24 19:32 Attending Provider on Discharge: Kya Yuen Primary Care Provider: Demetrius Quiroz Condition: Stable Anticipated Discharge Date/Time: 11/06/24 12:00 Discharge Medications: New acetaminophen 500 mg Tablet 1,000 mg PO Q6H PRNQty: 0 0RF ferrous sulfate 325 mg (65 mg iron) Tablet 325 mg PO Q OTHER DAY Qty: 60 0RF docusate sodium 100 mg Capsule 100 mg PO DAILY Qty: 60 0RF ibuprofen 600 mg Tablet 600 mg PO Q6H PRNQty: 60 0RF Continued Vitamin Plus Low Iron 27 mg iron- 1 mg tablet 1 tab PO QDAY Qty: 90 3RF famotidine [Pepcid] 20 mg tablet 20 mg PO QDAY Discharge Orders: Discharge Order (Routine); Ordered 11/07/24 Ordered By: Kya Yuen Patient Education: OB Over the Counter Medication Information, OB Vaginal/Breast Feeding Additional Instructions: Discharge instructions were reviewed with the patient including signs and symptoms of infection and home going medications Nothing vaginally for 6 weeks: no tampons or intercourse Off Work or School for 6 weeks 2-week visit: discuss infant feeding concerns, review control options and screen for anxiety/depression. 6-week visit for an annual exam. consultation services are available to all mothers and babies for the first year after delivery.? To make an appointment, please call [phone]. Activity Level: Activity as Tolerated Discharge Diet: Regular Follow Up Appointments: [facility] [Provider Group] [facility]: [facility] Info Instructions
[2024-11-07 07:50] LABS: Hemoglobin* 9.7 gm/dL (12.0-16.0)
[2024-11-07] MEDS: DOCUSATE SODIUM 100 MG CAPSULE PO (09:13)
[2024-11-07 09:15] VITALS: BP 112/70; PULSE 83; RESP 16; TEMP 36.8; O2SAT 98
[2024-11-07 22:40] LABS: Rapid Plasma Reagin (RPR) Non Reactive (Non Reactive)
== END 2024-11-07 12:00 | disposition home or self-care (01) | DRG 807 ==
PROVIDERS: Advanced Practice Midwife; Midwife; Admitting Provider Advanced Practice Midwife; PCP Family Medicine; Visit Provider Advanced Practice Midwife
DX: O48.0 Post-term pregnancy (principal); Z37.0 Single live birth; Z3A.41 41 weeks gestation of pregnancy; O99.344 Other mental disorders complicating childbirth; F41.9 Anxiety disorder, unspecified; F43.10 Post-traumatic stress disorder, unspecified; O77.0 Labor and delivery complicated by meconium in amniotic fluid; O40.3XX0 Polyhydramnios, third trimester, not applicable or unspecified; O70.1 Second degree perineal laceration during delivery; O66.0 Obstructed labor due to shoulder dystocia
CPT/HCPCS: 36415; 85018; 86592; A9270; J0690; J2003; J2405; J3010; J7120

== ENCOUNTER 2025-01-28 13:25 | Outpatient (CLI) | payer MEDICAID, SELFPAY | END 2025-01-28 13:26 | disposition home or self-care (01) | LOC: NFLDREF 13:27 | PROVIDERS: PCP Family Medicine; Visit Provider Advanced Practice Midwife | DX: N93.9 Abnormal uterine and vaginal bleeding, unspecified (principal) | CPT/HCPCS: 84443 ==